=== PATIENT | male | born 1980 | race Caucasian/White ===

== ENCOUNTER 2020-01-25 14:00 | Emergency (ER) | payer OTHER ==
[~2020-01-25] VITALS: Ht 175.3 cm; Wt 106.6 kg
[2020-01-25] MEDS ORDERED: CYCLOBENZAPRINE5 MG PO (16:18)
[2020-01-25] MEDS ORDERED: HYDROCODON-ACE1 EAC7 PO (16:18)
[2020-01-25 16:29] VITALS: BP 121/74
== END 2020-01-25 16:30 | disposition home or self-care (01) ==
LOC: M.ERS 14:00
DX: S00.03XA Contusion of scalp, initial encounter (principal); S30.0XXA Contusion of lower back and pelvis, initial encounter; J45.909 Unspecified asthma, uncomplicated; Z86.73 Personal history of transient ischemic attack (TIA), and cerebral infarction without residual deficits; W17.89XA Other fall from one level to another, initial encounter; Y93.89 Activity, other specified; Y92.89 Other specified places as the place of occurrence of the external cause; Y99.8 Other external cause status